=== PATIENT | female | born 1975 | race Caucasian/White ===

== ENCOUNTER 2022-07-01 09:59 | Outpatient (CLI) | payer BC, SELFPAY ==
--- NOTE | 2022-07-01 10:15 | CRLHL7_ITS ---
For Patients: As a result of the Cures Act, medical imaging exams and procedure reports are released immediately into your electronic medical record. You may view this report before your referring provider. If you have questions, please contact your health care provider. BILATERAL SCREENING MAMMOGRAM WITH COMPUTER-AIDED DETECTION AND TOMOSYNTHESIS TECHNIQUE: CC and MLO views were obtained. These mammographic images have been obtained using full-field digital technique. These mammographic images were interpreted with the benefit of computer-aided detection. Breast Tomosynthesis was used in this interpretation. COMPARISON FILM: 01/21/19, 11/09/17, 09/26/14. FINDINGS: There are scattered areas of fibroglandular density IMPRESSION: There is no radiographic evidence for malignancy. ASSESSMENT: BI-RADS Category 1: Negative RECOMMENDATION: Routine screening mammogram in 1 year. A lay language report of this examination will be provided to the patient. Max Vazquez M.D. Diagnostic Radiologist [email or web address] ROLANDO/donaldo Transcribed: 7:51 p.m. JANA/Dictated by: Max Vazquez MD @ 07/05/2022 11:46:00 AM (Electronically Signed)
== END 2022-07-01 10:00 | disposition home or self-care (01) ==
LOC: MAMMO 10:05
PROVIDERS: Visit Provider Physician Assistant Medical
DX: Z12.31 Encounter for screening mammogram for malignant neoplasm of breast (principal)
CPT/HCPCS: 77063; 77067

== ENCOUNTER 2022-09-15 14:21 | Outpatient (CLI) | payer BC, SELFPAY ==
[2022-09-15 22:04] LABS: Albumin* 4.3 g/dL (3.3-5.0)
[2022-09-15 22:05] LABS: Chloride* 104 mmol/L (96-114); Sodium* 139 mmol/L (135-149)
[2022-09-15 22:07] LABS: Bilirubin Total* 0.4 mg/dL (0.1-1.5); Carbon Dioxide* 30 mmol/L (20-32); Cholesterol* 180 mg/dL (90-199); Creatinine* 0.6 mg/dL (0.5-1.5); Estimated Glomerular Filt Rate 110 ml/min
[2022-09-15 22:08] LABS: Alanine Aminotransferase* 15 U/L (4-35); Alkaline Phosphatase* 60 U/L (40-150); Aspartate Amino Transferase* 24 U/L (12-35); Blood Urea Nitrogen* 17 mg/dL (5-24); Calcium* 9.1 mg/dL (8.4-10.6); Glucose* 106 mg/dL (60-115); HDL Cholesterol* 78 mg/dL (>=50); LDL Cholesterol Calculated 77 mg/dL (<100); Total Protein* 7.5 g/dL (6.0-8.3); Triglycerides* 124 mg/dL (40-149)
[2022-09-15 23:07] LABS: Potassium* 3.8 mmol/L (3.6-5.1)
== END 2022-09-15 14:22 | disposition home or self-care (01) ==
PROVIDERS: PCP Physician Assistant Medical; Visit Provider Physician Assistant Medical
DX: Z00.00 Encounter for general adult medical examination without abnormal findings (principal); E78.5 Hyperlipidemia, unspecified; I10 Essential (primary) hypertension; D64.9 Anemia, unspecified; F41.9 Anxiety disorder, unspecified
CPT/HCPCS: 80053; 80061

== ENCOUNTER 2022-09-26 16:52 | Outpatient (CLI) | payer BC, SELFPAY ==
--- NOTE | 2022-09-26 17:00 | CRLHL7_ITS ---
For Patients: As a result of the Century Cures Act, medical imaging exams and procedure reports are released immediately into your electronic medical record. You may view this report before your referring provider. If you have questions, please contact your health care provider. INDICATION: Anemia COMPARISON: 03/02/2021 TECHNIQUE: 2D dooley scale and color Doppler images were acquired of the pelvis using a transabdominal and transvaginal approach. FINDINGS: Sonographic images demonstrate a normal size and smooth outer contour of the uterus. Uterus measures 10.0 cm in length by 5.9 cm in AP diameter by 5.7 cm in transverse dimension. The myometrium has a normal uniform echotexture. The endometrial lining appears heterogeneous, mildly increased in vascularity and measures 13 mm in composite thickness. The right ovary measures 3.6 x 2.4 x 1.9 cm in size and the left ovary measures 4.6 x 2.3 x 3.0 cm. The ovaries demonstrate normal arterial and venous blood flow on color Doppler analysis. Small hypoechoic cyst within the right ovary measuring 1.8 x 1.9 x 1.4 cm. There are no suspicious fluid collections within the cul-de-sac. IMPRESSION: Heterogeneous endometrium with mild increased vascularity measuring 13 millimeters. No endometrial fluid. No uterine fibroid. Small hemorrhagic right ovarian cyst measuring 1.9 cm. Dictated by Max Vazquez MD @ 09/27/2022 10:27:49 AM (Electronically Signed)
== END 2022-09-26 16:53 | disposition home or self-care (01) ==
LOC: US 16:53
PROVIDERS: PCP Physician Assistant Medical; Visit Provider Physician Assistant Medical
DX: O99.012 Anemia complicating pregnancy, second trimester (principal); O34.80 Maternal care for other abnormalities of pelvic organs, unspecified trimester; N83.202 Unspecified ovarian cyst, left side; Z3A.00 Weeks of gestation of pregnancy not specified
CPT/HCPCS: 76830; 76856

== ENCOUNTER 2022-09-30 08:19 | Outpatient (CLI) | payer BC, SELFPAY ==
--- NOTE | 2022-09-30 10:42 | W.ANESCHARGE ---
Anesthesia Charges Start Date/Time Anesthesia Start Date: 09/30/22 Anesthesia Start Time: 10:10 Stop Date/Time Anesthesia Stop Date: 09/30/22 Anesthesia Stop Time: 10:40
== END 2022-09-30 08:20 | disposition home or self-care (01) ==
PROVIDERS: PCP Physician Assistant Medical; Visit Provider Internal Medicine
DX: Z12.11 Encounter for screening for malignant neoplasm of colon (principal); K63.5 Polyp of colon
CPT/HCPCS: 00811; 45380; 88300; J2405; J2704

== ENCOUNTER 2022-12-01 16:02 | Outpatient (CLI) | payer BC, SELFPAY | END 2022-12-01 16:03 | disposition home or self-care (01) | LOC: NFLDREF 12-02 00:17 | PROVIDERS: PCP Physician Assistant Medical; Referring Provider Physician Assistant Medical; Visit Provider Physician Assistant Medical | DX: D64.9 Anemia, unspecified (principal) | CPT/HCPCS: 83540; 83550 ==

== ENCOUNTER 2023-09-01 12:51 | Outpatient (CLI) | payer OTHER, SELFPAY ==
--- NOTE | 2023-09-01 13:00 | CRLHL7_ITS ---
For Patients: As a result of the Cures Act, medical imaging exams and procedure reports are released immediately into your electronic medical record. You may view this report before your referring provider. If you have questions, please contact your health care provider. BILATERAL SCREENING MAMMOGRAM WITH COMPUTER-AIDED DETECTION AND TOMOSYNTHESIS TECHNIQUE: CC and MLO views were obtained. These mammographic images have been obtained using full-field digital technique. These mammographic images were interpreted with the benefit of computer-aided detection. Breast Tomosynthesis was used in this interpretation. COMPARISON FILM: 07/01/22, 01/21/19, 11/09/17. FINDINGS: There are scattered areas of fibroglandular density IMPRESSION: There is no radiographic evidence for malignancy. ASSESSMENT: BI-RADS Category 1: Negative RECOMMENDATION: Routine screening mammogram in 1 year. A lay language report of this examination will be provided to the patient. Max Vazquez M.D. Diagnostic Radiologist [email or web address] ROLANDO/marion Transcribed: 4:40 p.mEsha schultz/Dictated by: Max Vazquez MD @ 09/06/2023 12:02:00 PM (Electronically Signed)
== END 2023-09-01 12:52 | disposition home or self-care (01) ==
LOC: MAMMO 12:54
PROVIDERS: PCP Physician Assistant Medical; Visit Provider Physician Assistant Medical
DX: Z12.31 Encounter for screening mammogram for malignant neoplasm of breast (principal)
CPT/HCPCS: 77063; 77067

== ENCOUNTER 2023-10-13 11:04 | Outpatient (CLI) | payer OTHER, SELFPAY | END 2023-10-13 11:05 | disposition home or self-care (01) | LOC: NFLDREF 10-25 13:24 | PROVIDERS: PCP Physician Assistant Medical; Referring Provider Physician Assistant Medical; Visit Provider Physician Assistant Medical | DX: E66.01 Morbid (severe) obesity due to excess calories (principal); Z13.29 Encounter for screening for other suspected endocrine disorder; D64.9 Anemia, unspecified; E78.5 Hyperlipidemia, unspecified; N92.1 Excessive and frequent menstruation with irregular cycle; I10 Essential (primary) hypertension; N76.0 Acute vaginitis; B96.89 Other specified bacterial agents as the cause of diseases classified elsewhere; F41.9 Anxiety disorder, unspecified; E78.2 Mixed hyperlipidemia; F51.01 Primary insomnia; D50.0 Iron deficiency anemia secondary to blood loss (chronic) | CPT/HCPCS: 80053; 80061; 84443 ==

== ENCOUNTER 2024-11-22 15:10 | Outpatient (CLI) | payer OTHER, SELFPAY ==
--- NOTE | 2024-11-22 15:20 | CRLHL7_ITS ---
For Patients: As a result of the Century Cures Act, medical imaging exams and procedure reports are released immediately into your electronic medical record. You may view this report before your referring provider. If you have questions, please contact your health care provider. BILATERAL SCREENING MAMMOGRAM WITH COMPUTER-AIDED DETECTION AND TOMOSYNTHESIS TECHNIQUE: CC and MLO views were obtained. These mammographic images have been obtained using full-field digital technique. These mammographic images were interpreted with the benefit of computer-aided detection. Breast Tomosynthesis was used in this interpretation. COMPARISON FILM: 09/01/23, 07/01/22, 01/21/19. FINDINGS: There are scattered areas of fibroglandular density. IMPRESSION: There is no radiographic evidence for malignancy. ASSESSMENT: BI-RADS Category 1: Negative RECOMMENDATION: Routine screening mammogram in 1 year. A lay language report of this examination will be provided to the patient. Max Vazquez M.D. Diagnostic Radiologist [email or web address] SP/Dictated by: Max Vazquez MD @ 11/25/2024 10:19:00 AM (Electronically Signed)
== END 2024-11-22 15:11 | disposition home or self-care (01) ==
LOC: MAMMO 15:10
PROVIDERS: PCP Physician Assistant Medical; Visit Provider Physician Assistant Medical
DX: Z12.31 Encounter for screening mammogram for malignant neoplasm of breast (principal)
CPT/HCPCS: 77063; 77067

== ENCOUNTER 2024-11-26 08:16 | Outpatient (CLI) | payer OTHER, SELFPAY | END 2024-11-26 08:17 | disposition home or self-care (01) | LOC: NFLDREF 11-29 23:17 | PROVIDERS: PCP Physician Assistant Medical; Referring Provider Physician Assistant Medical; Visit Provider Physician Assistant Medical | DX: E78.5 Hyperlipidemia, unspecified (principal); I10 Essential (primary) hypertension; E66.01 Morbid (severe) obesity due to excess calories; F41.9 Anxiety disorder, unspecified; F51.01 Primary insomnia; G47.9 Sleep disorder, unspecified | CPT/HCPCS: 80053; 80061; 84443 ==